=== PATIENT | female | born 1950 | race Caucasian/White ===

== ENCOUNTER → 2018-10-08 | Outpatient (REF) | payer BC | LOC: M LAB LCGH 15:46 | PROVIDERS: ATTEND Physician Assistant | DX: C44.729 Squamous cell carcinoma of skin of left lower limb, including hip (principal) ==

== ENCOUNTER 2022-09-24 07:22 | Day surgery (SDC) | payer BC ==
[~2022-09-24] VITALS: Ht 152.4 cm; Wt 54.1 kg
[~2022-09-24 07:22] MED LIST: BSS IRR 500ML/OMIDRIA 4ML IRR BAG (OR ONLY) As Ordered ONE; CALCCAP4 PO; CEFUROXIME 1MG/0.1ML INTRACAMERAL INJ As Ordered ONE; CETI10CA13 PO; FLON1SPR NARES; LIDOCAINE 1% SDV 5ML VIAL As Ordered ONE; PROPARACAINE 0.5% OPHTH SOL 15ML OD ONE; VITA500054 PO
[2022-09-24] MEDS ORDERED: MIDAZOLAM INJ 2MG/2ML VIAL As Ordered ONE (07:27)
[2022-09-24] MEDS ORDERED: fentaNYL 100 MCG/2 ML INJECTION As Ordered ONE (07:27)
[2022-09-24] MEDS: OFLOXACIN 0.3 % (OCUFLOX) OPTH SOL 5ML OD SCH ×2 (07:55→07:56)
[2022-09-24] MEDS: TROPICAMIDE 1% OPHTH SOLN 15ML OD SCH ×2 (07:55→07:56)
[2022-09-24] MEDS: CYCLOPENTOLATE 1% OPHTH SOLN 2ML BTL OD SCH ×2 (07:55→07:56)
[2022-09-24] MEDS: PHENYLEPHRINE 2.5% OPHTH SOL 2ML OD SCH ×2 (07:55→07:56)
[2022-09-24] MEDS ORDERED: DUOVISC (0.50ML VISCOAT/0.85ML PROVISC) OPHTH KIT IO ONE (09:23)
[2022-09-24 09:34] VITALS: BP 120/75; TEMP 97.1; O2SAT 96
== END 2022-09-24 09:55 | disposition home or self-care (01) ==
LOC: M SDC 07:22
PROVIDERS: ATTEND Ophthalmology
DX: H25.11 Age-related nuclear cataract, right eye (principal); I10 Essential (primary) hypertension; K76.9 Liver disease, unspecified; Z88.5 Allergy status to narcotic agent; Z88.1 Allergy status to other antibiotic agents; Z79.899 Other long term (current) drug therapy
CPT/HCPCS: 66984; 92015; J0697; J1097; J2250; J3010; V2788

== ENCOUNTER → 2023-12-16 | Outpatient (CLI) | payer BC ==
[~2023-12-16] MED LIST changes: -BSS IRR 500ML/OMIDRIA 4ML IRR BAG (OR ONLY) As Ordered ONE; -CEFUROXIME 1MG/0.1ML INTRACAMERAL INJ As Ordered ONE; -LIDOCAINE 1% SDV 5ML VIAL As Ordered ONE; -PROPARACAINE 0.5% OPHTH SOL 15ML OD ONE
== END ==
LOC: M PLAIMG 13:26
PROVIDERS: ATTEND Internal Medicine Pulmonary Disease
DX: R91.8 Other nonspecific abnormal finding of lung field (principal)

== ENCOUNTER → 2024-01-01 | Outpatient (CLI) | payer BC ==
[~2024-01-01] MED LIST changes: +METHACHOLINE KIT (6 VIAL.NEB PREMIX) INH ONE
== END ==
LOC: M CARPUL 09:27
PROVIDERS: ATTEND Internal Medicine Pulmonary Disease
DX: R05.3 Chronic cough (principal)
CPT/HCPCS: 94070; J7674

== ENCOUNTER 2024-03-05 07:44 | Day surgery (SDC) | payer BC ==
[~2024-03-05] VITALS: Ht 154.9 cm; Wt 53.3 kg
[~2024-03-05 07:44] MED LIST changes: +ALBU8.5H; +AZEL1SPR3; +FLUT100B; -METHACHOLINE KIT (6 VIAL.NEB PREMIX) INH ONE; +MONT10TA97 PO
[2024-03-05] MEDS ORDERED: LR 1,000 ML IV SCH (07:55)
[2024-03-05] MEDS ORDERED: propofoL 200 MG/20 ML VIAL As Ordered ONE (09:09)
[2024-03-05] MEDS ORDERED: LIDOCAINE 2% 100MG/5ML SDV (FOR ANES.) As Ordered ONE (09:09)
[2024-03-05] MEDS ORDERED: ONDANSETRON 4MG 2ML VIAL As Ordered ONE (09:11)
[2024-03-05] MEDS ORDERED: fentaNYL 100 MCG/2 ML INJECTION As Ordered ONE (09:12)
[2024-03-05] MEDS: CIPRODEX OTIC SUSP 7.5ML As Ordered ONE (10:09)
[2024-03-05] MEDS: PHENYLEPHRINE 0.5% NASAL SPRAY 15 ML As Ordered ONE (10:10)
[2024-03-05] MEDS ORDERED: ONDANSETRON 4MG 2ML VIAL IV PRN (10:25)
[2024-03-05] MEDS ORDERED: fentaNYL 100 MCG/2 ML INJECTION IV PRN (10:25)
[2024-03-05 11:13] VITALS: BP 118/70; TEMP 98.4; O2SAT 96
== END 2024-03-05 11:15 | disposition home or self-care (01) ==
LOC: M SDC 07:44
PROVIDERS: ATTEND Otolaryngology
DX: H69.93 Unspecified Eustachian tube disorder, bilateral (principal); H65.02 Acute serous otitis media, left ear; Z88.0 Allergy status to penicillin; Z88.5 Allergy status to narcotic agent; Z88.1 Allergy status to other antibiotic agents; Z79.899 Other long term (current) drug therapy
CPT/HCPCS: 69436; J1100; J2405; J3010

== ENCOUNTER → 2025-01-06 | Outpatient (CLI) | payer BC ==
[~2025-01-06] MED LIST changes: +LIDOCAINE 1% MDV 20 ML VIAL SC ONE; +LIDOCAINE 1% MDV 20 ML VIAL SC STA
[2025-01-06 13:44] VITALS: TEMP 97.8
[2025-01-06 15:05] VITALS: BP 124/76; O2SAT 97
== END ==
LOC: M IRPRO 13:24
PROVIDERS: ATTEND Nurse Practitioner Family
DX: E04.2 Nontoxic multinodular goiter (principal)

== ENCOUNTER → 2025-01-14 | Outpatient (CLI) | payer BC ==
[~2025-01-14] MED LIST changes: -LIDOCAINE 1% MDV 20 ML VIAL SC ONE; -LIDOCAINE 1% MDV 20 ML VIAL SC STA
== END ==
LOC: M RAD 10:51
PROVIDERS: ATTEND Internal Medicine Pulmonary Disease
DX: R91.8 Other nonspecific abnormal finding of lung field (principal); J84.10 Pulmonary fibrosis, unspecified; R59.1 Generalized enlarged lymph nodes